=== PATIENT | male | born 1950 | race Caucasian/White ===

== ENCOUNTER 2019-02-26 12:56 | Outpatient (CLI) | payer MEDICARE, BC ==
--- NOTE | 2019-02-26 14:48 | CT ---
CT LUMBAR SPINE WITHOUT CONTRAST: Date: 02/26/19 INDICATION: Lumbar stenosis. Lumbar radiculopathy. FINDINGS: Lumbar vertebra maintain height and alignment. There are moderate degenerative osteophytes seen. Brid ging osteophytes are seen anteriorly and laterally from the lumbar vertebra. Postoperative changes ar e seen at L4-5 with partial fusion. Loss of disc space at L5-S1 with degenerative change. The L1-2, L 2-3, and L3-4 disc spaces are preserved. Findings at each level are described below. At L1-2, mild diffuse disc bulge. Prominent facet hypertrophy. Short pedicle distance results in a co ngenitally smaller spinal canal. The changes at this level result in mild central canal stenosis. At L2-3, diffuse disc bulge is more prominent. There is very pronounced facet hypertrophy. These hickey ges, in combination with short pedicle distances, results in a severe central canal stenosis. At L3-4, broad based disc bulge. Very pronounced facet and ligamentous hypertrophy. Short pedicle dis tance. These changes result in severe central canal stenosis. Bilateral foraminal stenosis, more jai re on the right due to disc bulge and hypertrophic change. At L4-5, postoperative changes with posterior laminectomy change and interbody fusion. No significant central canal stenosis. Foramina show mild narrowing due to facet hypertrophy. At L5-S1, degenerative disc changes as noted above. Posterior disc bulge. No significant central tung l stenosis. Bilateral foraminal stenosis due to hypertrophic change. IMPRESSION: 1. Severe central canal stenosis at L2-3 and L3-4 levels as described above. 2. Postoperative changes at L4-5 as noted above. 3. Foraminal stenosis at L5-S1 with degenerative disc changes at this level as described above. POS: OFF
--- NOTE | 2019-02-26 15:01 | RAD ---
CERVICAL SPINE FIVE VIEWS: INDICATIONS: Cervical pain and radiculopathy. Tingling in arms. FINDINGS: Cervical vertebrae maintain normal height and alignment. Disk spaces are normally maintained. Minimal degenerative change. The posterior elements appear normally aligned. No abnormal subluxation seen with flexion or extension. IMPRESSION: Unremarkable cervical spine with only minimal degenerative change apparent. POS: OFF
== END 2019-02-26 12:57 | disposition home or self-care (01) ==
LOC: TBSIIMAG 12:56
PROVIDERS: ATTEND Surgery
DX: M48.062 Spinal stenosis, lumbar region with neurogenic claudication (principal); M54.16 Radiculopathy, lumbar region; M51.37 Other intervertebral disc degeneration, lumbosacral region; M47.812 Spondylosis without myelopathy or radiculopathy, cervical region; Z98.890 Other specified postprocedural states
CPT/HCPCS: 72050; 72131

== ENCOUNTER 2019-03-11 10:01 | Outpatient (CLI) | payer MEDICARE, BC ==
[2019-03-11 11:58] LABS: Hemoglobin 14.8 g/dL (14.0-18.0); Mean Corpuscular HGB CONC 33.9 g/dL (32.0-36.0); Mean Corpuscular Hemoglobin 33.5 pg (27.0-31.0); Mean Corpuscular Volume 98.6 fL (78.0-98.0); Mean Platelet Volume 6.7 fL (7.4-10.4); Platelet Count 204 thou/uL (130-400); RBC Distribution Width 12.2 % (11.5-14.5); Red Blood Cell (RBC) Count 4.42 mill/uL (4.70-6.10); White Blood Cell (WBC) Count 10.3 thou/uL (4.8-10.8)
[2019-03-11 12:00] LABS: PTT 31.6 SEC (22.9-36.1); Prothrombin Time 13.2 SEC (12.0-14.7)
[2019-03-11 12:17] LABS: Anion Gap 11 mmol/L (10-20); BUN (Urea Nitrogen) 20 mg/dL (8.4-25.7); Calc. Creatinine Clearance 0 mL/min (70-130); Calcium 10.2 mg/dL (7.8-10.44); Carbon Dioxide 29 mmol/L (23-31); Chloride 102 mmol/L (98-107); Estimated GFR-MDRD 62; Glucose 78 mg/dL (80-115); Sodium 138 mmol/L (136-145)
== END 2019-03-11 10:02 | disposition home or self-care (01) ==
LOC: LABBT 10:01
PROVIDERS: ATTEND Surgery
DX: Z01.818 Encounter for other preprocedural examination (principal); M54.16 Radiculopathy, lumbar region; M48.061 Spinal stenosis, lumbar region without neurogenic claudication
CPT/HCPCS: 80048; 85027; 85610; 85730; 93005; 93010

== ENCOUNTER 2019-03-11 10:15 | Inpatient (IN) | payer MEDICARE, BC ==
[2019-03-11 10:23] VITALS: BMI 40.5
[2019-03-18] MEDS ORDERED: Thrombin 5000 UNITS/5 ML VIAL ONE ×2 (10:35→12:24)
[2019-03-18] MEDS ORDERED: Sodium Chloride 0.9% 10 ML ONE (10:35)
[2019-03-18] MEDS ORDERED: Fentanyl 100 MCG/2 ML VIAL ONE (10:45)
[2019-03-18] MEDS ORDERED: PHENYLEPHRINE-NS 100 MCG/ML 10 ML SYRINGE ONE ×2 (10:48→13:01)
[2019-03-18] MEDS ORDERED: ePHEDrine/0.9% NaCl/PF SYRINGE 50 mg/10 ml ONE (10:48)
[2019-03-18] MEDS ORDERED: Dexamethasone 20 MG/5 ML VIAL ONE (10:48)
[2019-03-18] MEDS ORDERED: Metoclopramide HCl 10 MG/2 ML VIAL ONE (10:48)
[2019-03-18] MEDS ORDERED: Ondansetron PF 4 MG/2 ML Vial ONE (10:48)
[2019-03-18] MEDS ORDERED: Rocuronium Bromide 10 MG/ML (10ML VIAL) ONE (10:48)
[2019-03-18] MEDS ORDERED: PROPOFOL 200 MG/20 ML VIAL ONE (10:48)
[2019-03-18] MEDS ORDERED: Glycopyrrolate 0.2 MG/ML 5 ML SYRINGE ONE (10:48)
[2019-03-18] MEDS ORDERED: Succinylcholine Chloride 20 MG/ML 10 ml SYRINGE FS ONE (10:48)
[2019-03-18] MEDS ORDERED: Lidocaine 1% PF 5 ML VIAL ONE (10:48)
[2019-03-18] MEDS ORDERED: Vecuronium 10 MG VIAL ONE (10:48)
[2019-03-18] MEDS ORDERED: Albumin 5% 500 ML ONE (12:32)
[2019-03-18] MEDS ORDERED: Promethazine HCl 25 MG/ML VIAL SLOW IVP PRN (13:14)
[2019-03-18] MEDS ORDERED: Morphine Sulfate 2 MG/ML SYRINGE SLOW IVP PRN (13:14)
[2019-03-18] MEDS ORDERED: Promethazine HCl 25 MG/ML VIAL IM PRN (13:14)
[2019-03-18] MEDS ORDERED: PACU-Morphine 4MG/ML VIAL SLOW IVP PRN (13:14)
[2019-03-18] MEDS ORDERED: Ondansetron HCl/PF 4 MG/2 ML Vial IVP PRN (13:14)
[2019-03-18] MEDS ORDERED: HYDROmorphone 2 MG/ML VIAL SLOW IVP PRN (13:14)
[2019-03-18] MEDS ORDERED: HYDROmorphone 2 MG/ML VIAL ONE (13:58)
[2019-03-18] MEDS ORDERED: traMADol HCl 50 MG TAB PO PRN (14:31)
[2019-03-18] MEDS ORDERED: Morphine 2 MG/ML SYRINGE SLOW IVP PRN (14:31)
[2019-03-18] MEDS ORDERED: Ondansetron PF 4 MG/2 ML Vial IVP PRN (14:31)
[2019-03-18] MEDS ORDERED: Fleet Enema 133 ML BOT PR PRN (14:31)
[2019-03-18] MEDS ORDERED: Bisacodyl 10 MG SUPP PR PRN (14:31)
[2019-03-18] MEDS ORDERED: Acetaminophen 325 MG TAB PO PRN (14:31)
[2019-03-18] MEDS ORDERED: Acetaminophen/Codeine 30-300mg Tablet PO PRN (14:31)
[2019-03-18] MEDS ORDERED: Mag-Al 1200 mg/1200 mg/30 ML UDCUP PO PRN (14:31)
[2019-03-18] MEDS: CEFAZOLIN 2 GM in Premix Bag 1 BAG IVPB SCH (17:56)
[2019-03-18] MEDS: Sodium Chloride 0.9% 1,000 ML IV SCH (20:59)
[2019-03-18] MEDS: Rosuvastatin 5 MG TAB PO SCH (20:59)
[2019-03-18] MEDS: Metoprolol Tartrate 50 MG TAB PO SCH (20:59)
[2019-03-18] MEDS: HYDROcodone/Acetaminophen 7.5/325 mg Tablet PO PRN (21:03)
[2019-03-19] MEDS: CEFAZOLIN 2 GM in Premix Bag 1 BAG IVPB SCH ×3 (00:27→17:06)
[2019-03-19] MEDS: HYDROcodone/Acetaminophen 7.5/325 mg Tablet PO PRN ×5 (01:05→23:12)
[2019-03-19] MEDS: Sodium Chloride 0.9% 1,000 ML IV SCH ×2 (04:07→17:38)
[2019-03-19 06:07] LABS: #Lymphocytes 0.9 thou/uL (1.20-3.40); #Monocytes 0.7 thou/uL (0.11-0.59); #Neutrophils 9.3 thou/uL (1.40-6.50); %Basophils 0.2 % (0.0-1.0); %Lymphocytes 8.4 % (21.0-51.0); %Monocytes 6.7 % (0.0-10.0); %Neutrophils 84.6 % (42.0-75.0); Hemoglobin 11.5 g/dL (14.0-18.0); Mean Corpuscular HGB CONC 34.3 g/dL (32.0-36.0); Mean Corpuscular Hemoglobin 33.8 pg (27.0-31.0); Mean Corpuscular Volume 98.5 fL (78.0-98.0); Mean Platelet Volume 6.8 fL (7.4-10.4); Platelet Count 165 thou/uL (130-400); Red Blood Cell (RBC) Count 3.42 mill/uL (4.70-6.10)
[2019-03-19 06:23] LABS: Anion Gap 11 mmol/L (10-20); BUN (Urea Nitrogen) 17 mg/dL (8.4-25.7); Calc. Creatinine Clearance 133 mL/min (70-130); Calcium 8.9 mg/dL (7.8-10.44); Carbon Dioxide 25 mmol/L (23-31); Chloride 101 mmol/L (98-107); Estimated GFR-MDRD 64; Glucose 114 mg/dL (80-115); Potassium 3.9 mmol/L (3.5-5.1); Sodium 133 mmol/L (136-145)
--- NOTE | 2019-03-19 08:09 | OP ---
DATE OF PROCEDURE: 03/18/2019 LOCATION: OR 12. [employer] OPERATOR: Yared Chin PA-C PREPROCEDURE DIAGNOSES: Multilevel lumbar stenosis with history of prior L4-5 decompression and posterior segmental instrumentation. POSTPROCEDURE DIAGNOSES: Multilevel lumbar stenosis with history of prior L4-5 decompression and posterior segmental instrumentation. PROCEDURES PERFORMED: 1. L2-L3 and L3-L4 laminectomies, partial facetectomies, foraminotomies. 2. Bilateral L5-S1 revision hemilaminotomy and foraminotomies. 3. Removal of hardware L4-L5. DESCRIPTION OF PROCEDURE: After informed consent was obtained from the patient, the patient was brought to the OR. Proper patient, pause, and identification were carried out. He was placed under excellent general endotracheal anesthesia and positioned prone on the OR table. The prior midline lumbar wound was identified. This area was sterilely cleansed, prepared, and draped. Proper patient, pause, and identification were carried out. The wound was then opened with a combination of sharp, monopolar, and blunt dissection. The L2, L3, L4, L5, and S1 dorsal spines and lamina were exposed. The L4-L5 segment was missing. The instrumentation in the posterior segment of L4-L5 was removed. Bilateral L5-S1 revision hemilaminotomy and foraminotomy was performed. We then performed L2, L3, L4 laminectomies, partial facetectomies, foraminotomies to ensure freedom in the common dural tube the exiting and traversing nerve roots. There was no spinal fluid leak, although his dura was thin in the region of the L5-S1 segment, but again no evidence of partial or full-thickness opening in the dura and again no CSF leak. I did opt to put DuraSeal and copious irrigation then occurred as did maximizing hemostasis. The wound was closed in anatomic layers following sprinkling of vancomycin powder. The patient emerged from anesthesia. Job ID: [id number]
[2019-03-19] MEDS: Losartan 25 MG TAB PO SCH (08:15)
[2019-03-19] MEDS: Hydrochlorothiazide 25 MG TAB PO SCH (08:15)
[2019-03-19] MEDS: Ubidecarenone 50 MG CAP PO SCH (08:15)
[2019-03-19] MEDS: Metoprolol Tartrate 50 MG TAB PO SCH ×2 (08:17→20:38)
[2019-03-19] MEDS: Tamsulosin HCl 0.4 MG CAP PO SCH (08:17)
[2019-03-19] MEDS: Allopurinol 300 MG TAB PO SCH (08:17)
--- NOTE | 2019-03-19 09:32 | PRG ---
DATE OF SERVICE: 03/19/2019 Mr. Dockery is postoperative day #1 from multilevel lumbar decompression and removal of hardware. He is doing well with resolution in his leg pain. He has as expected incisional pain. His drain output has been 200 mL. We will continue this in place. His hemodynamics are stable. He is on nasal cannula. We will begin to mobilize him. Anticipate inpatient rehab when his drain output diminishes. Job ID: [id number]
[2019-03-19] MEDS ORDERED: hydrALAZINE 20 MG/ML VIAL SLOW IVP PRN (14:34)
--- NOTE | 2019-03-19 15:04 | CON ---
DATE OF CONSULTATION: PRIMARY CARE PROVIDER: Unknown. CHIEF COMPLAINT: Management of medical comorbidities. HISTORY OF PRESENT ILLNESS: Mr. Dockery is a pleasant 68-year-old gentleman, who was seen at [facility] on March 19, 2019. Yesterday, he underwent lumbar spine surgery. Hospitalist Service has been consulted for management of medical comorbidities. The patient denies any chest pain or shortness of breath. He denies any fevers or chills. He reports that low back pain is tolerable. REVIEW OF SYSTEMS: All systems were reviewed and found to be negative except for the pertinent positives mentioned above. PAST MEDICAL HISTORY: Hypertension, gout, dyslipidemia, gastroesophageal reflux disease, coronary artery disease, and obesity. PAST SURGICAL HISTORY: Left shoulder surgery, coronary artery bypass graft, and lumbar spine surgery. FAMILY HISTORY: Congestive heart failure in his mother. SOCIAL HISTORY: The patient denies tobacco use or alcohol use. He also denies recreational drug use. ALLERGIES: IODINATED CONTRAST MEDIA. HOME MEDICATIONS: 1. [place] p.r.n. 2. Allopurinol 300 mg daily. 3. Aspirin 81 mg daily. 4. Celebrex p.r.n. 5. Vitamin D3 1000 units daily. 6. Hydrochlorothiazide 25 mg daily. 7. Omeprazole 20 mg daily. 8. Rosuvastatin 5 mg at bedtime. 9. Tamsulosin 0.4 mg daily. 10. Coenzyme Q10 100 mg daily. 11. Losartan 50 mg daily. 12. Lopressor 50 mg 2 times a day. PHYSICAL EXAMINATION: GENERAL: On examination, Mr. Dockery is awake and alert, not in acute distress. VITAL SIGNS: Blood pressure is 124/72, pulse 78, respiratory rate 16, and oxygen saturation 96% on room air. He is afebrile. He is morbidly obese, with a BMI of 40.6. EYES: No scleral icterus, no conjunctival pallor. ENT: Moist mucosal membranes. No oropharyngeal erythema or exudates. NECK: Supple, nontender, trachea is midline. RESPIRATORY: Accessory muscles of breathing are not active. Chest wall movements are symmetric bilaterally. LUNGS: Clear to auscultation without wheeze, rhonchi, or crepitations. CARDIOVASCULAR: S1 and S2 are heard, regular. Peripheral pulses palpable. NEUROLOGIC: Cranial nerves 2 through 12 are intact. ABDOMEN: Soft, nontender, bowel sounds heard. MUSCULOSKELETAL: The patient is able to move all 4 extremities. SKIN: No rashes. LYMPHATIC: No cervical lymphadenopathy. PSYCHIATRIC: Normal mood, normal affect, the patient is oriented to person, place, and time. LABORATORY DATA: Mr. Dockery's labs and investigations were reviewed. He has mild leukocytosis with 11,000 white cells, of which 84.6% are neutrophils. He has macrocytic anemia with hemoglobin of 11.5 and normal platelet count. Sodium is mildly decreased at 133. Chem 7 is otherwise normal. ASSESSMENT AND PLAN: Mr. Dockery is a pleasant 68-year-old gentleman, who was seen at [facility] on March 19, 2019 for management of medical comorbidities. His problem list includes; 1. Hypertension: Resume home antihypertensives, monitor vital signs and titrate antihypertensives as needed. Blood pressure is currently under control. We will add p.r.n. IV hydralazine for blood pressure spikes. 2. Hyponatremia: Mild, likely asymptomatic. 3. Gastroesophageal reflux disease: Continue Protonix 40 mg daily. 4. Gout: Continue allopurinol. 5. Deep venous thrombosis prophylaxis and pain management per Primary Service. Many thanks for allowing me to participate in your patient's care. Please feel free to contact me with any questions or concerns. LEVEL OF RISK: Moderate. LEVEL OF COMPLEXITY: Moderate. Job ID: [id number]
[2019-03-19] MEDS: Milk Of Magnesia 30 ML UDCUP PO PRN (17:07)
[2019-03-19] MEDS: Rosuvastatin 5 MG TAB PO SCH (20:35)
[2019-03-20] MEDS: CEFAZOLIN 2 GM in Premix Bag 1 BAG IVPB SCH ×3 (00:54→17:55)
[2019-03-20] MEDS: Sodium Chloride 0.9% 1,000 ML IV SCH ×2 (00:56→20:15)
[2019-03-20] MEDS: HYDROcodone/Acetaminophen 7.5/325 mg Tablet PO PRN ×5 (02:58→20:18)
[2019-03-20] MEDS: Allopurinol 300 MG TAB PO SCH (08:03)
[2019-03-20] MEDS: Tamsulosin HCl 0.4 MG CAP PO SCH (08:07)
[2019-03-20] MEDS: Ubidecarenone 50 MG CAP PO SCH (08:07)
[2019-03-20] MEDS: Losartan 25 MG TAB PO SCH (08:09)
[2019-03-20] MEDS: Metoprolol Tartrate 50 MG TAB PO SCH ×2 (08:09→20:15)
[2019-03-20] MEDS: Hydrochlorothiazide 25 MG TAB PO SCH (08:09)
--- NOTE | 2019-03-20 15:08 | PRG ---
DATE OF SERVICE: 03/20/2019 This is Yared Chin PA-C dictating a report for Addi Rodriges MD. Mr. Dockery is postoperative day #3 having undergone multilevel lumbar laminectomies. He is feeling well today. He has no leg pain, but some incisional back pain with movement. He has remained afebrile. His drain output has been roughly 95 over the past 24 hours, so we will keep this in. He remains on Ancef. He hopefully will be ready for discharge tomorrow. Remains with good strength in all the extremities and has been using a walker to ambulate, but is much more comfortable walking postoperatively. His drain output is really what is keeping him here and we would like to see it trending downward significantly prior to discharge. The patient and his were very pleased with his postoperative outcome. We will continue to follow him. Job ID: [id number]
--- NOTE | 2019-03-20 16:14 | PDOC.HOSPP ---
- Subjective Encounter Date: 03/20/19 Encounter Time: 10:20 Subjective: Pt seen fof followup re: hypertension. No complaints today. - Objective Vital Signs & Weight: Vital Signs (12 hours) Temp Pulse Resp BP BP Pulse Ox 03/20/19 12:07 98.6 F 63 16 109/64 94 L 03/20/19 08:17 98.6 F 76 16 118/73 94 L 03/20/19 08:00 94 L Weight Weight 342 lb I&O: 03/19/19 03/20/19 03/21/19 06:59 06:59 06:59 Intake Total 1760 730 Output Total 382 5757 1100 Balance 232 -2087 -1736 Result Diagrams: 03/19/19 05:00 03/19/19 05:00 Additional Labs: labs and MARs reviewed by de Hospitalist ROS - Review of Systems Cardiovascular: denies: chest pain, palpitations, orthopnea, paroxysmal noc. dyspnea, edema, light headedness Gastrointestinal: denies: nausea, vomiting, abdominal pain, diarrhea, constipation, melena, hematochezia - Medication Medications: Active Medications Generic Name Dose Route Start Last Admin Trade Name Freq PRN Reason Stop Dose Admin Hydrocodone Bitart/Acetaminophen 1 tab 03/18/19 14:31 03/20/19 15:54 [place] 7.5/325 PO 1 tab Q4H PRN Administration Moderate Pain (4-6) Allopurinol 300 mg 03/19/19 09:00 03/20/19 08:03 Zyloprim PO 300 mg DAILY COMFORT Administration Cholecalciferol 1,000 units 03/19/19 09:00 03/20/19 08:08 Vitamin D3 PO 1,000 units DAILY COMFORT Administration Coenzyme Q10 100 mg 03/19/19 09:00 03/20/19 08:07 Coenzyme Q10 PO 100 mg DAILY COMFORT Administration Hydrochlorothiazide 25 mg 03/19/19 09:00 03/20/19 08:09 Hydrochlorothiazide PO 25 mg DAILY COMFORT Administration Cefazolin Sodium/Dextrose 2 gm 50 mls @ 100 mls/hr 03/18/19 17:00 03/20/19 08 :06 / Device IVPB 50 mls [id number] COMFORT Administration Sodium Chloride 1,000 mls @ 75 mls/hr 03/18/19 14:30 03/20/19 00:56 Normal Saline 0.9% IV Not Given .[id number] COMFORT Losartan Potassium 50 mg 03/19/19 09:00 03/20/19 08:09 Cozaar PO 50 mg DAILY COMFORT Administration Magnesium Hydroxide 30 ml 03/18/19 14:31 03/19/19 17:07 Milk Of Magnesium PO 30 ml Q12H PRN Administration Constipation Metoprolol Tartrate 50 mg 03/18/19 21:00 03/20/19 08:09 Lopressor PO 50 mg BID COMFORT Administration Morphine Sulfate 2 mg 03/18/19 14:31 03/18/19 18:00 Morphine SLOW IVP 2 mg Q1H PRN Administration Severe Pain (7-10) Pantoprazole Sodium 40 mg 03/19/19 09:00 03/20/19 08:07 Protonix PO 40 mg DAILY CMOFORT Administration Rosuvastatin Calcium 5 mg 03/18/19 21:00 03/19/19 20:35 Crestor PO 5 mg HS COMFORT Administration Tamsulosin HCl 0.4 mg 03/19/19 09:00 03/20/19 08:07 Flomax PO 0.4 mg DAILY COMFORT Administration Tramadol HCl 50 mg 03/18/19 14:31 03/19/19 06:36 Ultram PO 50 mg Q6H PRN Administration Mild Pain (1-3) - Exam General - other findings: Morbid obesity Eye: anicteric sclera ENT: moist mucosa Neck: supple Heart: RRR Respiratory: CTAB Gastrointestinal: soft, non-tender Extremities: no clubbing Skin: no rashes Musculoskeletal: normal tone Psychiatric: normal affect, normal behavior Hosp A/P (1) HTN (hypertension) Code(s): I10 - ESSENTIAL (PRIMARY) HYPERTENSION Status: Chronic (2) GERD (gastroesophageal reflux disease) Code(s): K21.9 - GASTRO-ESOPHAGEAL REFLUX DISEASE WITHOUT ESOPHAGITIS Status: Chronic (3) Gout Code(s): M10.9 - GOUT, UNSPECIFIED Status: Chronic (4) Hyponatremia Code(s): E87.1 - HYPO-OSMOLALITY AND HYPONATREMIA Status: Acute - Plan PT/OT, out of bed/ambulate HTN controlled. Hyponatremia mild, likely asymptomatic. GERD stable.
[2019-03-20] MEDS: Rosuvastatin 5 MG TAB PO SCH (20:14)
[2019-03-20] MEDS: Milk Of Magnesia 30 ML UDCUP PO PRN (20:24)
[2019-03-21] MEDS: tiZANidine HCl 4 MG TAB PO PRN ×2 (01:27→12:29)
[2019-03-21] MEDS: HYDROcodone/Acetaminophen 7.5/325 mg Tablet PO PRN ×2 (01:28→12:28)
[2019-03-21] MEDS: CEFAZOLIN 2 GM in Premix Bag 1 BAG IVPB SCH ×2 (01:28→08:43)
[2019-03-21] MEDS: Metoprolol Tartrate 50 MG TAB PO SCH (08:44)
[2019-03-21] MEDS: Tamsulosin HCl 0.4 MG CAP PO SCH (08:44)
[2019-03-21] MEDS: Allopurinol 300 MG TAB PO SCH (08:44)
[2019-03-21] MEDS: Ubidecarenone 50 MG CAP PO SCH (08:45)
[2019-03-21] MEDS: Losartan 25 MG TAB PO SCH (08:45)
[2019-03-21] MEDS: Hydrochlorothiazide 25 MG TAB PO SCH (08:58)
[2019-03-21] MEDS: Sodium Chloride 0.9% 1,000 ML IV SCH (09:17)
--- NOTE | 2019-03-21 12:48 | DIS ---
DATE OF ADMISSION: 03/18/2019 DATE OF DISCHARGE: 03/21/2019 This is Yared Chin PA-C dictating a report for Addi Rodriges MD. DISCHARGE DIAGNOSES: 1. Lumbar spinal stenosis with lumbar radiculopathy. 2. Gastroesophageal reflux disease. 3. Coronary artery disease, on aspirin. 4. Hyperlipidemia. 5. Benign prostatic hypertrophy. 6. Osteoarthritis. 7. Vitamin D deficiency. 8. Gout. HOSPITAL COURSE: Mr. Dockery was admitted on 01/16/2019 to undergo multilevel lumbar laminectomies with spinous process wire removal. The patient tolerated his procedure well and 1 drain was placed. The patient required several overnight stays in order for adequate pain control as well as decreased drain output. The patient did experience some urinary retention and a [place] catheter was placed and was discharged home with this with the understanding that he will have this removed early next week by primary care provider. At the time of discharge, the patient had resolution of his bilateral lower extremity pain and his back pain has improved significantly. Appropriate patient education and outpatient followups were provided to the patient as well as the appropriate prescriptions. The patient and his understood to call the office with questions or concerns prior to his next followup appointment. His ROBEL drain was removed prior to discharge. Again, they will call with questions or concerns. Otherwise, the patient is recovering well. Job ID: [id number]
[2019-03-21 13:15] VITALS: BP 119/71; TEMP 99.1
== END 2019-03-21 13:35 | disposition home or self-care (01) | DRG 516 ==
LOC: SURG A 03-18 06:40 → SJJU 03-18 16:49
PROVIDERS: ADMIT Surgery; ATTEND Surgery
PROC: 01NB0ZZ Release Lumbar Nerve, Open Approach (ICD-10-PCS; principal; 2019-03-18)
PROC: 01NR0ZZ Release Sacral Nerve, Open Approach (ICD-10-PCS; 2019-03-18)
PROC: 0SP304Z Removal of Internal Fixation Device from Lumbosacral Joint, Open Approach (ICD-10-PCS; 2019-03-18)
DX: M48.061 Spinal stenosis, lumbar region without neurogenic claudication (principal); Z68.41 Body mass index [BMI] 40.0-44.9, adult; E87.1 Hypo-osmolality and hyponatremia; M54.16 Radiculopathy, lumbar region; Z96.651 Presence of right artificial knee joint; Z90.49 Acquired absence of other specified parts of digestive tract; Z79.899 Other long term (current) drug therapy; I10 Essential (primary) hypertension; E78.5 Hyperlipidemia, unspecified; Z95.1 Presence of aortocoronary bypass graft; G47.00 Insomnia, unspecified; E66.01 Morbid (severe) obesity due to excess calories; K21.9 Gastro-esophageal reflux disease without esophagitis; M10.9 Gout, unspecified; N40.0 Benign prostatic hyperplasia without lower urinary tract symptoms; M19.91 Primary osteoarthritis, unspecified site; I25.10 Atherosclerotic heart disease of native coronary artery without angina pectoris; Z79.82 Long term (current) use of aspirin; E55.9 Vitamin D deficiency, unspecified; R33.9 Retention of urine, unspecified
CPT/HCPCS: 36415; 76000; 80048; 85025; J0131; J0690; J1100; J1170; J2001; J2270; J2405; J2704; J2765; J3010; J3370; J3490; P9045

== ENCOUNTER 2020-11-03 08:32 | Outpatient (CLI) | payer MEDICARE, BC ==
[2020-11-03] MEDS ORDERED: Magnevist 469MG/ML 20 ML VIAL ONE (09:18)
== END 2020-11-03 08:33 | disposition home or self-care (01) ==
LOC: TBSIIMAG 08:32
PROVIDERS: ATTEND Surgery
DX: M47.26 Other spondylosis with radiculopathy, lumbar region (principal); M48.061 Spinal stenosis, lumbar region without neurogenic claudication; M48.07 Spinal stenosis, lumbosacral region; Z98.890 Other specified postprocedural states
CPT/HCPCS: 72158; A9579

== ENCOUNTER 2022-11-09 06:26 | Day surgery (SDC) | payer MEDICARE ==
[2022-11-08 12:54] VITALS: BMI 40.5
[2022-11-09] MEDS ORDERED: PROPOFOL 200 MG/20 ML VIAL ONE (09:18)
[2022-11-09] MEDS ORDERED: Lidocaine 1% PF 5 ML VIAL ONE (09:18)
== END 2022-11-09 10:43 | disposition home or self-care (01) ==
LOC: SDC 06:26
PROVIDERS: ATTEND Internal Medicine Gastroenterology
PROC: 0DBK8ZZ Excision of Ascending Colon, Via Natural or Artificial Opening Endoscopic (ICD-10-PCS; principal; 2022-11-09)
PROC: 0DBL8ZZ Excision of Transverse Colon, Via Natural or Artificial Opening Endoscopic (ICD-10-PCS; 2022-11-09)
PROC: 0DBH8ZZ Excision of Cecum, Via Natural or Artificial Opening Endoscopic (ICD-10-PCS; 2022-11-09)
DX: D12.2 Benign neoplasm of ascending colon (principal); D12.3 Benign neoplasm of transverse colon; D12.0 Benign neoplasm of cecum; K57.30 Diverticulosis of large intestine without perforation or abscess without bleeding; K64.8 Other hemorrhoids; R19.7 Diarrhea, unspecified; I25.10 Atherosclerotic heart disease of native coronary artery without angina pectoris; I10 Essential (primary) hypertension; Z95.0 Presence of cardiac pacemaker; Z91.041 Radiographic dye allergy status; Z79.82 Long term (current) use of aspirin; Z79.899 Other long term (current) drug therapy
CPT/HCPCS: 88305; J2704

== ENCOUNTER 2023-03-14 10:37 | Outpatient (CLI) | payer MEDICARE | END 2023-03-14 10:38 | disposition home or self-care (01) | LOC: MRI 10:37 | PROVIDERS: ATTEND Specialist | DX: M51.17 Intervertebral disc disorders with radiculopathy, lumbosacral region (principal); M47.816 Spondylosis without myelopathy or radiculopathy, lumbar region; M51.36 Other intervertebral disc degeneration, lumbar region; M89.38 Hypertrophy of bone, other site; I51.7 Cardiomegaly; M46.07 Spinal enthesopathy, lumbosacral region; T84.9XXA Unspecified complication of internal orthopedic prosthetic device, implant and graft, initial encounter; Z98.890 Other specified postprocedural states; Z95.0 Presence of cardiac pacemaker | CPT/HCPCS: 71045; 72120; 72148 ==